=== PATIENT | male | born 1945 | race Caucasian/White ===

== ENCOUNTER 2017-10-02 11:27 | Outpatient (CLI) | payer BC | END 2017-10-02 21:07 | disposition home or self-care (01) | LOC: SRD 11:27 | PROVIDERS: ATTEND Family Medicine | DX: I70.0 Atherosclerosis of aorta (principal); R10.9 Unspecified abdominal pain; I10 Essential (primary) hypertension | CPT/HCPCS: 71046-TC ==

== ENCOUNTER 2017-10-03 08:30 | Outpatient (CLI) | payer BC | END 2017-10-03 19:26 | disposition home or self-care (01) | LOC: SUS 08:30 | PROVIDERS: ATTEND Family Medicine | DX: R10.9 Unspecified abdominal pain (principal); I63.9 Cerebral infarction, unspecified; I10 Essential (primary) hypertension | CPT/HCPCS: 76700-TC ==

== ENCOUNTER 2018-07-09 11:18 | Outpatient (CLI) | payer BC | END 2018-07-09 20:26 | disposition home or self-care (01) | LOC: SRD 11:18 | PROVIDERS: ATTEND Family Medicine | DX: I70.0 Atherosclerosis of aorta (principal); K46.9 Unspecified abdominal hernia without obstruction or gangrene | CPT/HCPCS: 71046-TC ==

== ENCOUNTER 2023-01-22 10:32 | Emergency (ER) | payer BC ==
[~2023-01-22] VITALS: Ht 162.6 cm; Wt 75.3 kg
[2023-01-22 10:43] VITALS: BP_SYST 130; PULSE 78; RESP 20; TEMP 98.3; O2SAT 98
[2023-01-22] MEDS ORDERED: HYDROcodone/ACETAMIN 5-325 MG TAB (NORCO/ VICODIN) PO ONE (12:00)
[2023-01-22 12:16] LABS: ANION GAP 5 (5-15); CALCIUM 9.1 mg/dL (8.4-11.0); CARBON DIOXIDE 31 mmol/L (23-29); CHLORIDE 99 mmol/L (98-107); CREATININE 1.14 mg/dL (0.55-1.30); GLUCOSE 118 mg/dL (74-106); POTASSIUM 3.5 mmol/L (3.5-5.1); SODIUM SERUM 135 mmol/L (136-145); UREA NITROGEN, BLOOD 17 mg/dL (8-21)
[2023-01-22 12:23] LABS: BASOPHILS % (AUTO) 0.4 % (0.0-2.0); EOSINOPHILS # (AUTO) 0.1 K/uL (0.0-0.4); EOSINOPHILS % (AUTO) 0.9 % (0.0-4.0); HEMATOCRIT 41.5 % (36-54); HEMOGLOBIN 13.5 g/dL (14.0-18.0); LYMPHOCYTES # (AUTO) 7.2 K/uL (1.0-5.5); LYMPHOCYTES % (AUTO) 53.2 % (20.5-51.5); MEAN CORPUSCULAR HEMOGLOBIN 29 pg (27-31); MEAN CORPUSCULAR HGB CONC 33 % (32-36); MEAN CORPUSCULAR VOLUME 89 fL (79.0-98.0); MONOCYTES # (AUTO) 0.5 K/uL (0.0-1.0); NEUTROPHILS # (AUTO) 5.6 K/uL (1.8-7.7); NEUTROPHILS % (AUTO) 41.5 % (40.0-70.0); PLATELET COUNT (AUTO) 196 K/uL (130-430); RED BLOOD CELL COUNT(AUTO) 4.69 MIL/uL (4.2-6.2); RED CELL DISTRIBUTION WIDTH 14.7 % (9.0-15.0); WHITE BLOOD COUNT (AUTO) 13.5 K/uL (4.8-10.8)
[2023-01-22] MEDS ORDERED: HYDR-3917 PO (14:19)
[2023-01-22 14:22] VITALS: BP_SYST 130; PULSE 78; RESP 20; TEMP 98.3; O2SAT 98
== END 2023-01-22 14:21 | disposition home or self-care (01) ==
LOC: SED 10:32
DX: M47.892 Other spondylosis, cervical region (principal); M54.2 Cervicalgia; E11.9 Type 2 diabetes mellitus without complications; I10 Essential (primary) hypertension; Z79.899 Other long term (current) drug therapy
CPT/HCPCS: 36415; 72125-TC; 76376; 80048; 85025; 99284